=== PATIENT | female | born 1955 | race Caucasian/White ===

== ENCOUNTER 2016-11-30 14:28 | Emergency (ER) | payer BC ==
[2016-11-30 15:01] VITALS: BP 174/102
--- NOTE | 2016-11-30 15:44 | UC ---
Epistaxis Nasal HPI - HPI Summary HPI Summary: 61 yo female with right nostril bleed x2 today first lasted minutes second lasted hours no trauma no URI no blood thinners has not see an MD for 2 yrs - History of Current Complaint Chief Complaint: UCGeneralIllness Stated Complaint: NOSE BLEED Time Seen by Provider: 11/30/16 15:15 Hx Obtained From: Patient Onset/Duration: Sudden Onset, Lasting Hours Timing: Hours Severity Initially: Mild Severity Currently: None Pain Intensity: 0 Pain Scale Used: 0-10 Numeric Character: Heavy Aggravating Factor(s): Nothing Alleviating Factor(s): Pressure Associated Signs And Symptoms: Negative: Bruising, Hematuria, Hematochezia, Sinus Pain, Nasal Discharge, Recent Abnormal Coagulation Studies, Foreign Body - Allergies/Home Medications Allergies/Adverse Reactions: Allergies Allergy/AdvReac Type Severity Reaction Status Date / Time Penicillins Allergy Itching Verified 11/30/16 14:36 Home Medications: Home Medications [place] 3 Fatty Acids-[place] 6 FA [Flax + Dha] 1 cap PO 11/30/16 [History Confirmed 11/30/16] PMH/Surg Hx/FS Hx/Imm Hx Cardiovascular History: Hypertension - pre hypertensive - Surgical History Surgical History: None - Family History Known Family History: Positive: Hypertension, Other - Souza anuerysm - Social History Alcohol Use: None Substance Use Type: None Smoking Status (MU): Never Smoked Tobacco Review of Systems Constitutional: Negative Skin: Negative Eyes: Negative ENT: Epistaxis - resolved Respiratory: Negative Cardiovascular: Negative Gastrointestinal: Negative Genitourinary: Negative Motor: Negative Neurovascular: Negative Musculoskeletal: Negative Neurological: Negative Psychological: Negative Is Patient Immunocompromised?: Yes All Other Systems Reviewed And Are Negative: Yes Physical Exam Triage Information Reviewed: Yes Appearance: Well-Appearing, No Pain Distress, Well-Nourished Vital Signs: Initial Vital Signs Temp 98.9 F 11/30/16 14:38 Pulse 110 11/30/16 14:38 Resp 18 11/30/16 14:38 Pulse Ox 95 11/30/16 14:38 Vital Signs Reviewed: Yes Eyes: Positive: Conjunctiva Clear ENT: Positive: Hearing grossly normal, TMs normal, Other: - firm appearing clot Kesselbach plexus right nostril. Negative: Nasal congestion, Nasal drainage, Tonsillar swelling, Tonsillar exudate, Trismus, Muffled/hoarse voice Neck: Positive: Supple, Nontender, Other: - no bruit Respiratory: Positive: Lungs clear, Normal breath sounds, No respiratory distress Cardiovascular: Positive: RRR, No Murmur Musculoskeletal: Positive: No Edema Neurological: Positive: Alert Psychological Exam: Normal Skin Exam: Normal Epistaxis Nasal Course/Dx - Differential Dx/Diagnosis Provider Diagnoses: nose bleed. elevated BP Discharge - Discharge Plan Condition: Stable Disposition: HOME Prescriptions: Amlodipine Besylate [Norvasc 2.5 mg tab] 2.5 mg PO DAILY #7 tab Patient Education Materials: Nosebleed (ED) Referrals: Non Staff,Doctor [Medical Doctor] - Additional Instructions: you can try nasalcease if your nose rebleeds ([facility] [employer]) otc recheck if unable to stop bleeding with nasalcease and pressure recheck BP in 1-2 weeks
== END 2016-11-30 15:43 | disposition home or self-care (01) ==
LOC: UCEAST 14:28
DX: R04.0 Epistaxis (principal); R03.0 Elevated blood-pressure reading, without diagnosis of hypertension
CPT/HCPCS: 99212; G0463